=== PATIENT | female | born 1930 | race Hispanic/Latino ===

== ENCOUNTER 2019-07-16 12:34 | Emergency (ER) | payer MEDICARE ==
[2019-07-16] MEDS ORDERED: TETANUS,DIPH,PERTUSS(ACELL) VACCINE 0.5 ML SYRINGE IM ONE (12:57)
--- NOTE | 2019-07-16 13:01 | Emergency Department Report ---
HPI - General Chief Complaint: Fall Time Seen by Provider: 07/16/19 12:50 - HPI HPI: Room 18 The patient is an 89-year-old female present with a chief complaint of head pain after fall. The patient was at respite care when she reportedly fell injuring the top of her head. Patient has a laceration to the top of the head. Is uncertain if the patient lost consciousness. The patient denies pain. ED Past Medical Hx - Past Medical History Previous Medical History?: Yes Hx Hypertension: Yes Hx Dementia: Yes (Alzheimer's) Additional medical history: alzheimers - Surgical History Past Surgical History?: Yes Additional Surgical History: ruptured colon with colostomy and colostomy reversal, hernia repair, right ankle surgery - Family History Family history: no significant - Social History Smoking Status: Unknown if ever smoked Substance Use Type: None - Medications Home Medications: Home Medications Medication Instructions Recorded Confirmed Last Taken Type Losartan [Cozaar] 50 mg PO QDAY 01/18/17 01/18/17 01/17/17 20:00 History clonazePAM [KlonoPIN] 0.5 mg PO QHS PRN 01/18/17 01/18/17 01/17/17 20:00 History 0.5mg Aspirin [Adult Low Dose Aspirin EC] 81 mg PO DAILY #30 tablet. 01/20/17 Unknown Rx HYDROcodone/APAP 10-325 [[place] 1 each PO Q8HR PRN #15 tablet 01/20/17 Unknown Rx 10/325] Omeprazole 40 mg PO DAILY #30 capsule. 01/20/17 Unknown Rx ED Review of Systems ROS: Stated complaint: HEAD LAC Other details as noted in HPI Neurological: denies: headache Physical Exam - Physical Exam Vital Signs: Vital Signs 07/16/19 12:55 Temperature 97.4 F L Pulse Rate 82 Respiratory 21 Rate Blood Pressure 196/89 [Right] O2 Sat by Pulse 95 Oximetry Physical Exam: GENERAL: The patient is well-developed well-nourished elderly female lying on stretcher with bandage wrapped around scalp not appearing to be in acute distress. [] HEENT: Normocephalic. Extraocular motions are intact. Patient has moist mucous membranes. NECK: Supple. Trachea midline. No axial tenderness to palpation CHEST/LUNGS: Clear to auscultation. There is no respiratory distress noted. HEART/CARDIOVASCULAR: Regular. There is no tachycardia. There is no gallop rub or murmur. ABDOMEN: Abdomen is soft, nontender. Patient has normal bowel sounds. There is no abdominal distention. SKIN: There is no diaphoresis. NEURO: The patient is awake, alert, and oriented. The patient is cooperative. The patient has no focal neurologic deficits. The patient has normal speech MUSCULOSKELETAL: There is no tenderness to palpation of bilateral lower extremities/hips and bilateral upper extremities. There is no evidence of acute injury. ED Course Vital Signs 07/16/19 12:55 Temperature 97.4 F L Pulse Rate 82 Respiratory 21 Rate Blood Pressure 196/89 [Right] O2 Sat by Pulse 95 Oximetry - Consultations Consultation #1: 07/16/19 14:46 Case discussed with [facility] trauma attending Dr. Short-will accept patient in transfer - Laceration /Wound Repair Head Wound Location: head Wound Length (cm): 11 Wound's Depth, Shape: linear Wound Explored: clean Irrigated w/ Saline (ccs): 500 Betadine Prep?: Yes Anesthesia: Lidocaine w/ Epi Volume Anesthetic (ccs): 10 Number of Sutures: 10 ([place]) ED Medical Decision Making - Radiology Data Radiology results: report reviewed (CT head), image reviewed (CT head, CT cervical spine) [facility] [address] [place] [address] Cat Scan Report Signed Patient: LAURA BARRERA MR#: [id number] 40 : 1930 Acct:[id number] Age/Sex: 89 / F ADM Date: 07/16/19 Loc: ED Attending Dr: Ordering Physician: FRANK FOUNTAIN MD Date of Service: 07/16/19 Procedure(s): CT head/brain wo con Accession Number(s): [id number] cc: FRANK FOUNTAIN MD CT BRAIN: 07/16/2019 INDICATION / CLINICAL INFORMATION: Head laceration after fall. COMPARISON: 01/18/2017 FINDINGS: BRAIN/INTRACRANIAL STRUCTURES: Unenhanced CT images of the brain demonstrate no evidence of acute abnormality. Ventricles and sulci are prominent in size, consistent with age-related atrophic change. Chronic white matter hypoattenuation is present throughout the cerebral hemispheric white matter. Chronic ischemic changes present in the region of the right basal ganglia. There is no evidence of hemorrhage or mass. There are no abnormal extra-axial fluid collections. EXTRACRANIAL STRUCTURES: Unremarkable. IMPRESSION: No acute abnormality. Stable chronic and age-related changes. All CT scans at this location are performed using dose reduction to ALARA by means of automated exposure control. Signer Name: Marino Shi MD Signed: 07/16/2019 2:17 PM Workstation Name: [id number] Transcribed By: CARI Dictated By: Marino Shi MD Electronically Authenticated By: Marino Shi MD Signed Date/Time: 07/16/191416 DD/ 14 TD/TT: [facility] [address] [place] [address] Cat Scan Report Signed Patient: LAURA BARRERA MR#: [id number] [birth year] : 1930 Acct:[id number] Age/Sex: 89 / F ADM Date: 07/16/19 Loc: ED Attending Dr: Ordering Physician: FRANK FOUNTAIN MD Date of Service: 07/16/19 Procedure(s): CT cervical spine wo con Accession Number(s): [id number] cc: FRANK FOUNTAIN MD } CT CERVICAL SPINE: 07/16/2019 INDICATION / CLINICAL INFORMATION: Trauma. COMPARISON: None available. FINDINGS: CT images of the cervical spine were obtained. Images are evaluated in the axial, coronal, and sagittal planes. Patient is a pronounced thoracic kyphosis, with associated hyperlordosis of the cervical spine. There is a linear lucency in the left pedicle of C1, best seen on axial images 17-18. The C1 ring is otherwise intact. I would consider this to be of uncertain acuity. Acute isolated fracture cannot be excluded, although I think it is possible that this is a chronic finding. Cervical vertebral are otherwise without evidence of acute abnormality. Degenerative disc and facet changes are present throughout the cervical spine. The bones are diffusely osteopenic. CRANIOCERVICAL JUNCTION: Unremarkable. PARASPINAL STRUCTURES: Unremarkable IMPRESSION: Linear lucency in left C1 pedicle as described above, of uncertain chronicity. All CT scans at this location are performed using dose reduction to ALARA by means of automated exposure control. Signer Name: Marino Shi MD Signed: 07/16/2019 2:23 PM Workstation Name: [id number] Transcribed By: CARI Dictated By: Marino Shi MD Electronically Authenticated By: Marino Shi MD Signed Date/Time: 07/16/191422 DD/ 16 TD/TT: - Differential Diagnosis Scalp laceration, closed head injury, intracranial hemorrhage Critical care attestation.: If time is entered above; I have spent that time in minutes in the direct care of this critically ill patient, excluding procedure time. ED Disposition Clinical Impression: Closed head injury, Scalp laceration, C1 cervical fracture Disposition: DC/TX-70 ANOTHER TYPE HLTHCARE Is pt being admited?: No Does the pt Need Aspirin: No Condition: Fair Referrals: PRIMARY CARE, [Primary Care Provider] - 3-5 Days Time of Disposition: 14:47 (Awaiting transport)
[2019-07-16] MEDS ORDERED: LIDOCAINE 1%/EPINEPHRINE 1:100,000 VIAL (20 ML) INFILTRATI ONE (13:48)
[2019-07-16] MEDS ORDERED: SODIUM CHLORIDE 0.9% IRR 500 ML BOTTLE IR ONE (13:48)
--- NOTE | 2019-07-16 14:21 | Cat Scan Report ---
CT BRAIN: 07/16/2019 INDICATION / CLINICAL INFORMATION: Head laceration after fall. COMPARISON: 01/18/2017 FINDINGS: BRAIN/INTRACRANIAL STRUCTURES: Unenhanced CT images of the brain demonstrate no evidence of acute abn ormality. Ventricles and sulci are prominent in size, consistent with age-related atrophic change. Chronic whit e matter hypoattenuation is present throughout the cerebral hemispheric white matter. Chronic ischemic changes present in the region of the right basal ganglia. There is no evidence of hemorrhage or mass. There are no abnormal extra-axial fluid collections. EXTRACRANIAL STRUCTURES: Unremarkable. IMPRESSION: No acute abnormality. Stable chronic and age-related changes. All CT scans at this location are performed using dose reduction to ALARA by means of automated expos ure control. Signer Name: Marino Shi MD Signed: 07/16/2019 2:17 PM Workstation Name: [id number]
--- NOTE | 2019-07-16 14:27 | Cat Scan Report ---
"|} CT CERVICAL SPINE: 07/16/2019 INDICATION / CLINICAL INFORMATION: Trauma. COMPARISON: None available. FINDINGS: CT images of the cervical spine were obtained. Images are evaluated in the axial, coronal, and sagitt al planes. Patient is a pronounced thoracic kyphosis, with associated hyperlordosis of the cervical spine. There is a linear lucency in the left pedicle of C1, best seen on axial images 17-18. The C1 ring is otherwise intact. I would consider this to be of uncertain acuity. Acute isolated fracture cannot be excluded, although I think it is possible that this is a chronic finding. Cervical vertebral are otherwise without evidence of acute abnormality. Degenerative disc and facet changes are present throughout the cervical spine. The bones are diffusely osteopenic. CRANIOCERVICAL JUNCTION: Unremarkable. PARASPINAL STRUCTURES: Unremarkable IMPRESSION: Linear lucency in left C1 pedicle as described above, of uncertain chronicity. All CT scans at this location are performed using dose reduction to ALARA by means of automated expos ure control. Signer Name: Marino Shi MD Signed: 07/16/2019 2:23 PM Workstation Name: [id number]
[2019-07-16 15:38] VITALS: BP 171/83
== END 2019-07-16 17:15 | disposition other institution (70) ==
LOC: ED 12:34
DX: S01.01XA Laceration without foreign body of scalp, initial encounter (principal); S09.90XA Unspecified injury of head, initial encounter; S12.090A Other displaced fracture of first cervical vertebra, initial encounter for closed fracture; I10 Essential (primary) hypertension; G30.8 Other Alzheimer's disease; F02.80 Dementia in other diseases classified elsewhere, unspecified severity, without behavioral disturbance, psychotic disturbance, mood disturbance, and anxiety; Z98.890 Other specified postprocedural states; Z79.899 Other long term (current) drug therapy; Z88.2 Allergy status to sulfonamides; W19.XXXA Unspecified fall, initial encounter; Y93.89 Activity, other specified; Y92.89 Other specified places as the place of occurrence of the external cause; Y99.8 Other external cause status
CPT/HCPCS: 70450; 72125; 90471; 90715